=== PATIENT | male | born 1960 | race Caucasian/White ===

== ENCOUNTER 2021-07-20 07:34 | Day surgery (SDC) | payer OTHER ==
[~2021-07-20] VITALS: Ht 185.4 cm; Wt 140.8 kg
[2021-07-20 08:05] VITALS: BP 147/79
[2021-07-20 09:00] LABS: HEMATOCRIT 47.3 % (39.0-50.0); HEMOGLOBIN 15.8 g/dl (14.0-18.0); IMMATURE GRANULOCYTES 0.2 % (0.0-5.0); MEAN CELL VOLUME 85.4 fL CALC (80.0-100.0); MEAN CORPUSCULAR HGB 28.5 pG CALC (26.0-32.0); MEAN CORPUSCULAR HGB CONC 33.4 g/dL CAL (32.0-36.0); NEUT# 7.77 thou/uL (1.82-7.42); RED BLOOD COUNT 5.54 mill/uL (4.70-6.10); RED CELL DISTRI WIDTH 12.4 % (11.5-15.5)
[2021-07-20] MEDS ORDERED: ASPIRIN 81 LOW81 MG PO (09:12)
[2021-07-20] MEDS ORDERED: BUPROPION150 M3 PO (09:13)
[2021-07-20] MEDS ORDERED: LIPITOR20 MG PO (09:13)
[2021-07-20] MEDS ORDERED: NEXIUM 24HR20 M1 PO (09:14)
[2021-07-20] MEDS ORDERED: OZEMPIC2 MG/1.5 M (09:15)
[2021-07-20] MEDS ORDERED: HYDROCHLOROT12.5 MG PO (09:15)
[2021-07-20 09:27] LABS: ALBUMIN 4.4 g/dL (3.2-5.0); ALKALINE PHOSPHATASE 57 u/l (38-126); BILIRUBIN, TOTAL 0.8 mg/dL (0.0-1.4); BUN 17 mg/dL (8-23); BUN/CREATININE RATIO 18 (12-20 (CALC)); CARBON DIOXIDE 28 mmol/l (22-30); CHLORIDE 101 mmol/l (95-108); CREATININE 0.9 mg/dL (0.7-1.3); GFR > 60 ML/MIN (>=60 (CALC)); GFR FOR AFR.AMER. > 60 ML/MIN (>=60 (CALC)); SGOT/AST 32 u/l (19-48); SODIUM 139 mmol/l (137-146); TOTAL PROTEIN 7.2 g/dL (6.3-8.2)
[2021-07-20 09:30] LABS: ANION GAP 14 (6-22 (CALC)); POTASSIUM 3.8 mmol/l (3.5-5.1)
[2021-07-20] MEDS ORDERED: CLONIDINE0.1 MG PO (14:14)
[2021-07-20] MEDS ORDERED: NALTREXONE50 MG PO (14:15)
[2021-07-20] MEDS ORDERED: KLONOPIN0.5 MG PO (14:15)
[2021-07-20 17:19] VITALS: BP 142/72
[2021-07-21 04:00] VITALS: BP 132/61
[2021-07-21 06:09] LABS: ALBUMIN 4.3 g/dL (3.2-5.0); ALKALINE PHOSPHATASE 55 u/l (38-126); ANION GAP 15 (6-22 (CALC)); BUN 16 mg/dL (8-23); BUN/CREATININE RATIO 18 (12-20 (CALC)); CARBON DIOXIDE 29 mmol/l (22-30); CHLORIDE 100 mmol/l (95-108); CREATININE 0.9 mg/dL (0.7-1.3); GFR > 60 ML/MIN (>=60 (CALC)); GFR FOR AFR.AMER. > 60 ML/MIN (>=60 (CALC)); MAGNESIUM 2.3 mg/dL (1.6-2.3); POTASSIUM 3.6 mmol/l (3.5-5.1); SGOT/AST 47 u/l (19-48); SODIUM 140 mmol/l (137-146); TOTAL PROTEIN 7.1 g/dL (6.3-8.2)
[2021-07-21 07:37] VITALS: BP 156/77
[2021-07-21 11:19] VITALS: BP 117/49
[2021-07-21 15:18] VITALS: BP 109/52; BP 151/72
[2021-07-21 20:30] VITALS: BP 147/65
[2021-07-22] VITALS: BP 145/73
[2021-07-22 03:50] VITALS: BP 141/74
[2021-07-22 08:33] VITALS: BP 166/83
== END 2021-07-22 09:36 | disposition home or self-care (01) | DRG 897 ==
LOC: ANR 07:34 → MS2 07:38 → ANR 07:38 → MS2 07:45 → ANR 10:08
PROVIDERS: ATTEND Anesthesiology
DX: F11.20 Opioid dependence, uncomplicated (principal)
CPT/HCPCS: J2060; J2354